=== PATIENT | male | born 1940 | race African-American/Black ===

== ENCOUNTER 2017-04-16 16:49 | Inpatient (IN) | payer OTHER ==
[~2017-04-16] VITALS: Ht 182.9 cm; Wt 138.3 kg
--- NOTE | ~2017-04-16 | 2DMMODE ---
[facility] [address] [place] [address] 2 D/M-MODE ECHOCARDIOGRAM Name: RYAN MAY Room #: 459-P [facility] IN .R.#: [id number] Admission: 04/16/17 Attend Phys: Gregg Walker, Discharge: Date of : 42 Date of Service: 04/17/17 1043 Report #: [id number] THIS REPORT FOR: //name// APPROVED REPORT Study performed: 04/17/2017 09:30:45 EXAM: Comprehensive 2D, Doppler, and color-flow Echocardiogram Patient Location: Bedside Room #: 459 Status: routine BSA: 2.55 HR: 110 bpm BP: 152/96 mmHg Rhythm: Atrial Fibrillation Other Information Study Quality: Adequate Indications Atrial Fibrillation 2D Dimensions RVDd: 40.40 mm LVEF(%): 22.35 (>50%) IVSd: 11.19 (7-11mm) LVOT Diam: 21.73 (18-24mm) LVDd: 64.03 mm PWd: 11.22 (7-11mm) Ascending Ao: 35.32 (22-36mm) LVDs: 57.32 (25-40mm) Aortic Root: 36.13 mm Das's LVEF: 22.35 % Volumes Left Atrial Volume (Systole) Single Plane 4CH: 137.77 mL Single Plane 2CH: 156.83 mL LA ESV Index: 63.00 mL/m2 Aortic Valve AoV Peak Loi.: 1.20 m/s AO Peak Gr.: 9.20 mmHg LVOT Max P.65 mmHg LVOT Max V: 0.63 m/s MERCEDES Vmax: 1.94 cm2 Mitral Valve MV Decel. Time: 158.82 ms MV E Max Loi.: 1.15 m/s [facility] [place] [address] 2 D/M-MODE ECHOCARDIOGRAM Name: RYAN MAY Room #: 459-P ADM IN M.R.#: [id number] Admission: 04/16/17 Attend Phys: Gregg Walker, Discharge: Date of : 42 Date of Service: 04/17/17 1043 Report #: [id number] Pulmonary Valve PV Peak Loi.: 1.03 m/s PV Peak Gr.: 4.26 mmHg Tricuspid Valve TR Peak Loi.: 2.59 m/s RAP Estimate: 5.00 mmHg TR Peak Gr.: 26.78 mmHg Left Ventricle Left ventricle is dilated. There is normal left ventricular wall thickness. Left ventricular systolic function is severely decreased. LVEF is 25-30%. This study is not technically sufficient to allow evaluation of the LV diastolic function due to atrial fibrillation. Right Ventricle The right ventricle is normal size. Right ventricular systolic function is mildly reduced. Atria Left atrium is severely dilated. Right atrium is moderately dilated. Aortic Valve Aortic valve is calcified. Trace aortic regurgitation. There is no aortic valvular stenosis. Mitral Valve Mitral valve leaflets are mildly thickened. Mild mitral annular calcification. Moderate mitral regurgitation. Eccentric jet. No evidence of mitral valve stenosis. Tricuspid Valve The tricuspid valve is normal in structure. Trace tricuspid regurgitation. Estimated PAP is 32mmHg. Pulmonic Valve The pulmonary valve is normal in structure. Mild pulmonic regurgitation. Great Vessels The aortic root is normal in size. The ascending aorta is normal in size. IVC is normal in size and collapses >50% with inspiration. <Conclusion> [facility] [address] [place] [address] 2 D/M-MODE ECHOCARDIOGRAM Name: RYAN MAY Room #: 459-P [facility] IN .R.#: [id number] Admission: 04/16/17 Attend Phys: Gregg Walker, Discharge: Date of : 42 Date of Service: 04/17/17 1043 Report #: [id number] Left ventricle is dilated. Left ventricular systolic function is severely decreased. The right ventricle is normal size. Left atrium is severely dilated. Right atrium is moderately dilated. Aortic valve is calcified. Trace aortic regurgitation. Moderate mitral regurgitation. Eccentric jet. Trace tricuspid regurgitation. Estimated PAP is 32mmHg. <ELECTRONICALLY SIGNED> By: Seferino Joshi MD 04/17/17 1043 1043 Seferino Joshi MD /INF
--- NOTE | ~2017-04-16 | EKG ---
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[employer]: KIM : 1940 Requested By: Thad Holbrook Order Number: [id number] MD: Sincere Mann Measurements Intervals [place] Rate: 168 P: ND: QRS: -38 QRSD: 101 T: 170 QT: 261 QTc: 437 Interpretive Statements Atrial fibrillation with rapid V-rate Left axis deviation Repolarization abnormality, prob rate related No previous ECG available for comparison Electronically Signed On 04-17-2017 7:20:57 CDT by Sincere Mann [email or web address] <ELECTRONICALLY SIGNED> By: Sincere Mann MD, [facility] 04/17/17 0720 48 Sincere Mann MD, [facility] /EPI
[~2017-04-16 16:49] MED LIST: APAP500; DOXYCYCLINE 10100 M1 PO; HYDROCODONE-AP1 EA15 PO; IBUPROFEN 600600 M1 PO; NORCO 5-325 TA1 EACH PO; PERCOCET 5-3251 EACH PO; PLENDIL5 MG PO
[2017-04-16 16:50] VITALS: BP 125/68
[2017-04-16 17:30] LABS: CALCIUM 8.3 mg/dL (8.5-10.1); CREATININE 1.4 mg/dL (0.7-1.3); POTASSIUM 3.7 mmol/L (3.5-5.1)
[2017-04-16 17:31] LABS: HEMATOCRIT 35.3 % (42.0-52.0); HEMOGLOBIN 11.1 gm/dL (14.0-18.0); MANUAL DIFF YES; MCH 24.8 pg (26.0-34.0); MCHC 31.5 g/dL (28.0-37.0); MCV 78.6 fL (80.0-100.0); PLATELET COUNT 344 thou/uL (150-400); RBC 4.49 mil/uL (4.50-6.00); RDW 26.7 % (10.5-14.5); WBC 10.3 thou/uL (4.0-11.0)
[2017-04-16 17:35] LABS: ALBUMIN 1.7 g/dL (3.4-5.0); DIRECT BILIRUBIN 1.3 mg/dL (<0.1-0.3); MAGNESIUM 1.7 mg/dL (1.8-2.4); TOTAL BILIRUBIN 2.2 mg/dL (<0.1-1.0); TOTAL PROTEIN 8.4 g/dL (6.4-8.2)
[2017-04-16 17:52] LABS: ABSOLUTE NEUTROPHILS 8.3 thou/uL (1.4-8.2); ANISOCYTOSIS 1+; HYPOCHROMASIA 2+; MICROCYTES 2+; TOTAL CELL COUNT 100
[2017-04-16 17:53] LABS: POIKILOCYTOSIS SLIGHT
[2017-04-16 17:56] LABS: URINE BILIRUBIN NEGATIVE (Negative); URINE BLOOD NEGATIVE (Negative); URINE COLOR YELLOW; URINE GLUCOSE-RANDOM* NEGATIVE (Negative); URINE KETONES NEGATIVE (Negative); URINE LEUKOCYTES-REFLEX NEGATIVE (Negative); URINE PROTEIN (DIPSTICK) TRACE (Negative); URINE SPECIFIC GRAVITY <= 1.005 (1.003-1.035); URINE UROBILINOGEN 0.2 E.U./dl (0.2-1.0)
[2017-04-16] MEDS ORDERED: CARDIZEM CD180 MG PO (18:38)
[2017-04-16] MEDS ORDERED: PEPCID20 MG PO (18:39)
[2017-04-16] MEDS ORDERED: ALLOPURINOL 10100 M1 PO (18:39)
[2017-04-16] MEDS ORDERED: IMDUR 60 MG TAB60 M1 PO (18:40)
[2017-04-16] MEDS ORDERED: REGLAN 10 MG TA10 MG PO (18:40)
[2017-04-16] MEDS ORDERED: LASIX 40 MG TAB40 M2 PO (18:42)
[2017-04-16 19:51] VITALS: BP 149/84
[2017-04-16 20:12] VITALS: BP 145/84
[2017-04-16 23:47] VITALS: BP 137/83
[2017-04-17] MEDS ORDERED: BISACODYL SUPP10 MG RECTAL (00:03)
[2017-04-17] MEDS ORDERED: DOCUSATE SODIU100 MG PO (00:04)
[2017-04-17] MEDS ORDERED: ONDANSETRON HCL4 M2 PO (00:05)
[2017-04-17] MEDS ORDERED: MIRALAX17 GM PO (00:05)
[2017-04-17] MEDS ORDERED: POTASSIUM20 PO (00:06)
[2017-04-17] MEDS ORDERED: COMPAZINE10 MG PO (00:06)
[2017-04-17] MEDS ORDERED: SIMETHICON CHEW80 M1 PO (00:07)
[2017-04-17 04:36] VITALS: BP 138/84
[2017-04-17 05:35] LABS: ABSOLUTE NEUTROPHILS 6.3 thou/uL (1.4-8.2); BASOPHILS 0.7 % (0.0-2.0); EOSINOPHILS 0.9 % (0.0-3.0); HEMOGLOBIN 9.8 gm/dL (14.0-18.0); LYMPHOCYTES 18.3 % (24.0-44.0); MANUAL DIFF NO; MCH 24.9 pg (26.0-34.0); MCHC 31.7 g/dL (28.0-37.0); MCV 78.4 fL (80.0-100.0); MONOCYTES 11.5 % (1.0-8.0); PLATELET COUNT 275 thou/uL (150-400); POLYS 68.6 % (36.0-66.0); RBC 3.96 mil/uL (4.50-6.00); WBC 9.1 thou/uL (4.0-11.0)
[2017-04-17 05:44] LABS: CALCIUM 7.8 mg/dL (8.5-10.1); CREATININE 1.1 mg/dL (0.7-1.3); POTASSIUM 3.4 mmol/L (3.5-5.1)
[2017-04-17 08:26] VITALS: BP 152/96
[2017-04-17 09:29] LABS: ANISOCYTOSIS 2+; HYPOCHROMASIA 2+; MICROCYTES 2+; PLATELET ESTIMATE NORMAL
[2017-04-17] MEDS ORDERED: COREG25 MG PO (16:21)
[2017-04-17 19:38] VITALS: BP 134/80
[2017-04-18 05:42] LABS: HEMATOCRIT 30.7 % (42.0-52.0); HEMOGLOBIN 9.8 gm/dL (14.0-18.0); MCH 24.9 pg (26.0-34.0); MCHC 31.9 g/dL (28.0-37.0); PLATELET COUNT 276 thou/uL (150-400); RBC 3.93 mil/uL (4.50-6.00); RDW 26.7 % (10.5-14.5); WBC 9.1 thou/uL (4.0-11.0)
[2017-04-18 05:44] LABS: MANUAL DIFF YES
[2017-04-18 05:57] LABS: ALBUMIN 1.3 g/dL (3.4-5.0); CALCIUM 7.8 mg/dL (8.5-10.1); CREATININE 1.1 mg/dL (0.7-1.3); POTASSIUM 3.5 mmol/L (3.5-5.1); TOTAL BILIRUBIN 1.3 mg/dL (<0.1-1.0)
[2017-04-18 08:18] VITALS: BP 134/74
[2017-04-18 08:58] LABS: ABSOLUTE NEUTROPHILS 7.9 thou/uL (1.4-8.2); TOTAL CELL COUNT 100
[2017-04-18 08:59] LABS: ANISOCYTOSIS 1+; HYPOCHROMASIA 2+; PLATELET ESTIMATE NORMAL
[2017-04-18] MEDS ORDERED: CARDIZEM CD240 MG PO (10:42)
[2017-04-18] MEDS ORDERED: ELIQUIS5 MG PO (10:42)
[2017-04-18 12:19] VITALS: BP 145/85
[2017-04-18 16:18] VITALS: BP 136/77
[2017-04-18 20:08] VITALS: BP 141/94
[2017-04-19 04:34] VITALS: BP 123/79
[2017-04-19 08:42] VITALS: BP 140/84
[2017-04-19 09:25] VITALS: BP 152/89
[2017-04-19 12:06] VITALS: BP 133/77
== END 2017-04-19 14:42 | DRG 871 ==
LOC: ER 16:49 → 4W 17:50 → EROBS 17:50 → 4W 19:59 → EROBS 22:24 → 4W 22:27
PROVIDERS: Emergency Medicine; Family Medicine; Nurse Practitioner; Nurse Practitioner Family
DX: A41.9 Sepsis, unspecified organism (principal); E43 Unspecified severe protein-calorie malnutrition; N39.0 Urinary tract infection, site not specified; Z68.41 Body mass index [BMI] 40.0-44.9, adult; I42.9 Cardiomyopathy, unspecified; I48.91 Unspecified atrial fibrillation; I10 Essential (primary) hypertension; F03.90 Unspecified dementia, unspecified severity, without behavioral disturbance, psychotic disturbance, mood disturbance, and anxiety; E03.9 Hypothyroidism, unspecified; D64.9 Anemia, unspecified; Z87.442 Personal history of urinary calculi; Z79.899 Other long term (current) drug therapy; Z85.038 Personal history of other malignant neoplasm of large intestine; Z90.49 Acquired absence of other specified parts of digestive tract
CPT/HCPCS: 10045